=== PATIENT | female | born 1960 | race Asian ===

== ENCOUNTER → 2017-08-08 | Outpatient (CLI) | payer OTHER ==
[~2017-08-08] MED LIST: ASPI-1146 PO; ATEN25 PO; CALC1TAB15 PO; CETI-193 GT; FERR-89 PO; IMATINIB; LEVO88TA7 PO; RANI150T7 PO
== END | disposition home or self-care (01) ==
LOC: EMPHLTH 11:15
PROVIDERS: ATTEND Internal Medicine
DX: Z02.1 Encounter for pre-employment examination (principal)
CPT/HCPCS: 86706; 86735; 86762; 86765; 86787

== ENCOUNTER → 2017-10-22 | Outpatient (CLI) | payer OTHER ==
[~2017-10-22] MED LIST changes: -ATEN25 PO; +ATEN25TA PO
== END | disposition home or self-care (01) ==
LOC: RADPV 11:26
PROVIDERS: ATTEND Internal Medicine
DX: R07.9 Chest pain, unspecified (principal); I51.7 Cardiomegaly; I70.0 Atherosclerosis of aorta
CPT/HCPCS: 71111

== ENCOUNTER → 2019-03-26 | Outpatient (CLI) | payer OTHER | END | disposition home or self-care (01) | LOC: RADPV 10:13 | PROVIDERS: ATTEND Internal Medicine | DX: M77.32 Calcaneal spur, left foot (principal); M76.62 Achilles tendinitis, left leg ==

== ENCOUNTER → 2020-01-18 | Outpatient (CLI) | payer OTHER ==
[2020-01-18 09:08] LABS: CHOL/HDL RATIO 3.1 (3.9-5.7); THYROID STIMULATING HORMONE 0.12 uIU/mL (0.36-3.74)
== END | disposition home or self-care (01) ==
LOC: LABPV 07:50
PROVIDERS: ATTEND Internal Medicine
DX: E11.22 Type 2 diabetes mellitus with diabetic chronic kidney disease (principal); E78.5 Hyperlipidemia, unspecified
CPT/HCPCS: 83036; 84443